=== PATIENT | male | born 1970 | race Caucasian/White ===

== ENCOUNTER 2016-11-16 12:28 | Inpatient (IN) | payer OTHER ==
[~2016-11-16] VITALS: Ht 185.4 cm; Wt 96.3 kg
[2016-11-16 12:58] LABS: Basophils # (auto) 0.1 uL; CONDITION Y; Eosinophils # (auto) 0.1 uL; Eosinophils % (auto) 1.8 % (0.0-7.0); Hematocrit 47.4 % (41.0-53.0); Hemoglobin 16.2 g/dL (13.5-17.5); Lymphocytes # (auto) 1.8 uL; Lymphocytes % (auto) 30.5 % (10.0-50.0); Mean Corpuscular Hemoglobin 28.4 pg (28.0-32.0); Mean Corpuscular Hgb Conc. 34.1 g/dL (32.0-36.0); Mean Corpuscular Volume 83.3 fL (80.0-100.0); Mean Platelet Volume 9.1 fL (7.4-10.4); Monocytes # (auto) 0.3 uL; Monocytes % (auto) 4.9 % (0.0-12.0); Neutrophils # (auto) 3.6 uL; Neutrophils % (auto) 61.8 % (37.0-80.0); Platelet Count (auto) 247 10^3/uL (140-450); Red Cell Distribution Width 13.7 % (11.6-16.0); White Blood Cell 5.8 10^3/uL (4.4-10.8)
[2016-11-16 13:31] LABS: Alkaline Phosphatase 113 U/L (45-117); Anion Gap 9 (5-15); Aspartate Aminotransferase 18 U/L (15-37); BUN/Creatinine Ratio 11.7; Bilirubin, Total 0.6 mg/dL (0.2-1.0); Blood Urea Nitrogen 13 mg/dL (7-18); Calcium 9.4 mg/dL (8.5-10.1); Carbon Dioxide 25 mmol/L (21-32); Chloride 103 mmol/L (98-107); GFR African American 91 mL/min; GFR Non-African American 75 mL/min; Glucose 117 mg/dL (74-106); Magnesium 2.2 mg/dL (1.6-2.6); Sodium 137 mmol/L (136-145); Total Protein 7.9 g/dL (6.4-8.2)
[2016-11-16] MEDS ORDERED: ASPirin 81 mg TAB PO ONE (14:45)
[2016-11-16] MEDS ORDERED: ACETAMINOPHEN 325 MG TAB PO PRN (15:15)
[2016-11-16] MEDS ORDERED: MORPHINE SULF INJ 2 MG/ML SYRINGE 1ML IV PRN ×2 (15:15)
[2016-11-16] MEDS ORDERED: HYDROcodone-ACET 5/325MG TAB PO PRN (15:15)
[2016-11-16] MEDS ORDERED: TEMAZEPAM 15 MG CAP PO PRN (15:15)
[2016-11-16] MEDS ORDERED: DOCUSATE SOD 100 MG CAP PO PRN (15:15)
[2016-11-16] MEDS ORDERED: ONDANSETRON HCL 4 MG/2 ML VIAL IV PRN (15:15)
[2016-11-16] MEDS ORDERED: NITROGLYCERIN 0.4 MG SL TAB SL PRN (15:15)
[2016-11-16] MEDS ORDERED: DEXTROSE (50%) 50ML SYRG IV PRN (15:30)
[2016-11-16 16:20] LABS: B-Type Natriuretic Peptide 23.35 pg/mL (0-100)
[2016-11-16] MEDS ORDERED: LISINOPRIL 5 MG TAB PO ONE (16:30)
[2016-11-16] MEDS ORDERED: MULTIPLE VITAMIN TAB PO ONE (16:30)
[2016-11-16 16:39] LABS: Temperature: 22.4 C (20.0-25.0)
[2016-11-16] MEDS: ENOXAPARIN SOD 40 MG/0.4 ML SYRINGE SC SCH (16:56)
[2016-11-16] MEDS: InsuLIN REG 1unit/0.01ml Soln (100units/ml) SC SCH ×2 (17:00→22:39)
[2016-11-16] MEDS: ACCU-CHEK COMFORT CURVE STRIP VI SCH ×2 (17:18→22:39)
[2016-11-16 21:59] VITALS: BP 109/68
[2016-11-16] MEDS ORDERED: ATORVASTATIN 20 MG TAB PO SCH (22:00)
[2016-11-16] MEDS: FAMOTIDINE 20 MG TAB PO SCH (22:39)
[2016-11-16] MEDS: SODIUM CHLOR 0.9% PF (SALINE LOCK) 10ML VIAL IV SCH (22:40)
[2016-11-16] MEDS ORDERED: LORazepam 2MG/ML-1ML VIAL IV PRN (22:45)
[2016-11-16] MEDS: SODIUM CHLORIDE 0.9% 1,000 ML IV SCH (23:26)
[2016-11-17] VITALS (58 sets, daily range): BP systolic 101–156; BP diastolic 50–85
[2016-11-17 04:04] LABS: Basophils # (auto) 0 uL; Basophils % (auto) 0.5 % (0.0-2.0); CONDITION Y; Eosinophils # (auto) 0.1 uL; Eosinophils % (auto) 2.1 % (0.0-7.0); Hematocrit 45.1 % (41.0-53.0); Hemoglobin 15.2 g/dL (13.5-17.5); Lymphocytes # (auto) 2.2 uL; Lymphocytes % (auto) 42.1 % (10.0-50.0); Mean Corpuscular Hemoglobin 28.4 pg (28.0-32.0); Mean Corpuscular Hgb Conc. 33.7 g/dL (32.0-36.0); Mean Corpuscular Volume 84.2 fL (80.0-100.0); Monocytes # (auto) 0.3 uL; Monocytes % (auto) 6.4 % (0.0-12.0); Neutrophils # (auto) 2.6 uL; Neutrophils % (auto) 48.9 % (37.0-80.0); Platelet Count (auto) 228 10^3/uL (140-450); Red Cell Distribution Width 13.7 % (11.6-16.0); White Blood Cell 5.3 10^3/uL (4.4-10.8)
[2016-11-17 04:26] LABS: Albumin 3.6 g/dL (3.4-5.0); BUN/Creatinine Ratio 14.3; Bilirubin, Total 0.8 mg/dL (0.2-1.0); Potassium 3.7 mmol/L (3.5-5.1); Total Protein 7.1 g/dL (6.4-8.2)
[2016-11-17] MEDS: SODIUM CHLOR 0.9% PF (SALINE LOCK) 10ML VIAL IV SCH ×3 (06:16→22:00)
[2016-11-17] MEDS: InsuLIN REG 1unit/0.01ml Soln (100units/ml) SC SCH ×4 (07:00→22:02)
[2016-11-17] MEDS: ACCU-CHEK COMFORT CURVE STRIP VI SCH ×4 (07:04→22:00)
[2016-11-17] MEDS ORDERED: IOHEXOL 350 MG/ML 100ML IJ ONE (08:04)
[2016-11-17] MEDS: ENOXAPARIN SOD 40 MG/0.4 ML SYRINGE SC SCH (10:59)
[2016-11-17] MEDS: MULTIPLE VITAMIN TAB PO SCH (11:00)
[2016-11-17] MEDS: FAMOTIDINE 20 MG TAB PO SCH ×2 (11:00→21:53)
[2016-11-17] MEDS: ASPirin-EC 81 mg tab PO SCH (11:00)
[2016-11-17] MEDS: LISINOPRIL 5 MG TAB PO SCH (11:01)
[2016-11-17] MEDS: SODIUM CHLORIDE 0.9% 1,000 ML IV SCH (12:05)
[2016-11-17 14:35] LABS: Urine RBC None Seen /hpf (0 - 3)
[2016-11-17 15:11] LABS: Urine Bilirubin Negative (Negative); Urine Blood Negative /uL (Negative); Urine Color Yellow (Yellow); Urine Glucose TRACE mg/dL (Normal); Urine Ketone Negative (Negative); Urine Nitrite POSITIVE (Negative); Urine Urobilinogen Normal (Negative)
[2016-11-17] MEDS: ATORVASTATIN 20 MG TAB PO SCH (21:53)
[2016-11-18] VITALS: BP 90/54
[2016-11-18 06:00] VITALS: BP 120/78
[2016-11-18] MEDS: SODIUM CHLOR 0.9% PF (SALINE LOCK) 10ML VIAL IV SCH ×3 (06:19→21:42)
[2016-11-18] MEDS: InsuLIN REG 1unit/0.01ml Soln (100units/ml) SC SCH ×4 (06:19→21:44)
[2016-11-18] MEDS: ACCU-CHEK COMFORT CURVE STRIP VI SCH ×4 (06:20→21:44)
[2016-11-18 09:00] VITALS: BP 121/80
[2016-11-18] MEDS ORDERED: FLUMAZENIL 0.1 MG/ML INJ 10ML MDV IV ONE (09:00)
[2016-11-18] MEDS ORDERED: NALOXONE HCL 0.4 MG/ML VIAL ONE (09:00)
[2016-11-18] MEDS ORDERED: NALOXONE HCL 0.4 MG/ML VIAL IV ONE ×2 (09:15)
[2016-11-18] MEDS ORDERED: MIDAZOLAM HCL 1MG/1ML-2 ML VIAL IV ONE (09:15)
[2016-11-18] MEDS ORDERED: fentaNYL CITRATE 100 MCG/2 ML VL IM ONE (09:15)
[2016-11-18] MEDS: ASPirin-EC 81 mg tab PO SCH (11:34)
[2016-11-18] MEDS: MULTIPLE VITAMIN TAB PO SCH (11:34)
[2016-11-18] MEDS: LISINOPRIL 5 MG TAB PO SCH (11:35)
[2016-11-18] MEDS: FAMOTIDINE 20 MG TAB PO SCH ×2 (11:35→21:42)
[2016-11-18 13:00] VITALS: BP 112/75
[2016-11-18 17:00] VITALS: BP 129/77
[2016-11-18] MEDS: ATORVASTATIN 20 MG TAB PO SCH (21:42)
[2016-11-18 22:00] VITALS: BP 121/75
[2016-11-19 05:00] VITALS: BP 114/72
[2016-11-19] MEDS: SODIUM CHLOR 0.9% PF (SALINE LOCK) 10ML VIAL IV SCH (05:52)
[2016-11-19] MEDS: InsuLIN REG 1unit/0.01ml Soln (100units/ml) SC SCH ×2 (06:32→11:30)
[2016-11-19] MEDS: ACCU-CHEK COMFORT CURVE STRIP VI SCH ×2 (06:32→11:30)
[2016-11-19] MEDS ORDERED: MIDAZOLAM HCL 1MG/1ML-2 ML VIAL IV ONE ×2 (08:00)
[2016-11-19] MEDS ORDERED: LIDOCAINE VISCOUS 2% 15ML UD PO ONE (08:00)
[2016-11-19] MEDS ORDERED: fentaNYL CITRATE 100 MCG/2 ML VL IV ONE (08:00)
[2016-11-19] MEDS ORDERED: NALOXONE HCL 0.4 MG/ML VIAL ONE (08:10)
[2016-11-19] MEDS ORDERED: FLUMAZENIL 0.1 MG/ML INJ 10ML MDV IV ONE (08:10)
[2016-11-19] MEDS ORDERED: MIDAZOLAM HCL 1MG/1ML-2 ML VIAL ONE (08:19)
[2016-11-19 09:00] VITALS: BP 116/80
[2016-11-19] MEDS: FAMOTIDINE 20 MG TAB PO SCH (12:37)
[2016-11-19] MEDS: ASPirin-EC 81 mg tab PO SCH (12:37)
[2016-11-19] MEDS: MULTIPLE VITAMIN TAB PO SCH (12:37)
[2016-11-19] MEDS: LISINOPRIL 5 MG TAB PO SCH (12:38)
[2016-11-19] MEDS ORDERED: METF-371 PO (12:47)
[2016-11-19] MEDS ORDERED: LISI-275 PO (12:47)
[2016-11-19 12:51] VITALS: BP 124/73
[2016-11-20 03:06] LABS: Anticardiolipin IgM Antibody <9 MPL U/mL (0-12)
[2016-11-22 22:09] LABS: Protein S Antigen Free 132 % (57-157); Proten S Antigen Total 127 % (60-150)
== END 2016-11-19 13:50 | disposition home or self-care (01) | DRG 65 ==
LOC: ER 12:28 → EDBD 12:28 → TELE 12:29 → TELE-WESTW 18:10 → ICU WEST 11-17 00:58 → TELE-WESTW 11-18 06:08
PROVIDERS: ADMIT Internal Medicine; ATTEND Internal Medicine
PROC: B24BZZ4 Ultrasonography of Heart with Aorta, Transesophageal (ICD-10-PCS; principal; 2016-11-19)
DX: I63.9 Cerebral infarction, unspecified (principal); G81.94 Hemiplegia, unspecified affecting left nondominant side; E11.21 Type 2 diabetes mellitus with diabetic nephropathy; E11.22 Type 2 diabetes mellitus with diabetic chronic kidney disease; I12.9 Hypertensive chronic kidney disease with stage 1 through stage 4 chronic kidney disease, or unspecified chronic kidney disease; N18.9 Chronic kidney disease, unspecified; G47.30 Sleep apnea, unspecified; Z79.899 Other long term (current) drug therapy; Z79.82 Long term (current) use of aspirin; Z80.7 Family history of other malignant neoplasms of lymphoid, hematopoietic and related tissues; Z83.3 Family history of diabetes mellitus
CPT/HCPCS: 36415; 70450; 70498; 70551; 71020; 80053; 80061; 80307; 81001; 81241; 82962; 83036; 83735; 83880; 84443; 84484; 85025; 85301; 85302; 85303; 85305; 85306; 85613; 85670; 85705; 85732; 86147; 86850; 86900; 86901; 87081; 92610; 93005; 93306; 93312; 93886; 99152; 99153; J1815; J2250